=== PATIENT | female | born 1975 | race American Indian/Alaskan Native ===

== ENCOUNTER 2016-09-09 11:54 | Emergency (ER) | payer SELFPAY ==
[2016-09-09] MEDS ORDERED: TYLENOL PO ONE (12:38)
[2016-09-09] MEDS ORDERED: MOTRIN PO ONE (12:38)
--- NOTE | 2016-09-09 12:43 | Emergency Department Report ---
Chief Complaint: Fever Stated Complaint: HEADACHE/CP/MUSCLE PAIN Time Seen by Provider: 09/09/16 12:38 - HPI History of Present Illness: PT states her twins have been sick with URI. PT states yesterday she started having subjective fevers, body aches, cough, chest pain - ROS Review of Systems: + fever + chill + nausea + chest pain denies chance of - Exam Physical Exam: PT febrile in triage but appears non toxic, pt is obese PT tachycardic gcs 15 steady gait MSE screening note: Focused history and physical exam performed. Due to findings the following was ordered: labs, ekg, xr ED Disposition for MSE Condition: Stable
[2016-09-09 12:44] VITALS: BP 204/109
[2016-09-09 12:55] LABS: Basophils % (Auto) 0.6 % (0.0-1.8); Hematocrit 37.8 % (30.3-42.9); Hemoglobin 12.2 gm/dl (10.1-14.3); Mean Corpuscular HGB Conc 32 % (30-34); Mean Corpuscular Hemoglobin 26 pg (28-32); Mean Corpuscular Volume 82 fl (79-97); Platelet Count 334 K/mm3 (140-440); Red Blood Count 4.61 M/mm3 (3.65-5.03); Red Cell Distribution Width 15.5 % (13.2-15.2); White Blood Count 7.7 K/mm3 (4.5-11.0)
[2016-09-09 13:14] LABS: Alanine Aminotransferase 17 units/L (7-56); Albumin 3.7 g/dL (3.9-5); Albumin/Globulin Ratio 1.1 %; Alkaline Phosphatase 89 units/L (35-129); Anion Gap 17 mmol/L; BUN/Creatinine Ratio 8.57; Bilirubin,Total 0.3 mg/dL (0.1-1.2); Blood Urea Nitrogen 6 mg/dL (7-17); Calcium 8.7 mg/dL (8.4-10.2); Carbon Dioxide 24 mmol/L (22-30); Chloride 95.8 mmol/L (98-107); Glucose 229 mg/dL (65-100); Potassium 3.9 mmol/L (3.6-5.0); Sodium 133 mmol/L (137-145); Total Protein 7.2 g/dL (6.3-8.2)
--- NOTE | 2016-09-10 08:45 | XRay Report ---
ROUTINE CHEST, TWO VIEWS: PA and lateral views demonstrate the heart and mediastinal contour to be of normal size and shape. The lungs are clear and fully expanded and the soft tissues and bony structures are normal. IMPRESSION: Normal study.
--- NOTE | 2016-09-13 15:44 | ED Elopement Review ---
ED Pt Elopement review - Results review Lab results: Laboratory Tests 09/09/16 09/09/16 12:46 12:46 WBC 7.7 RBC 4.61 Hgb 12.2 Hct 37.8 MCV 82 MCH 26 L MCHC 32 RDW 15.5 H Plt Count 334 Lymph % (Auto) 12.3 L Holmes % (Auto) 14.9 H Eos % (Auto) 1.0 Baso % (Auto) 0.6 Lymph # 0.9 L Holmes # 1.1 H Eos # 0.1 Baso # 0.0 Seg Neutrophils % 71.2 H Seg Neutrophils # 5.5 Sodium 133 L Potassium 3.9 Chloride 95.8 L Carbon Dioxide 24 Anion Gap 17 BUN 6 L Creatinine 0.7 Estimated GFR > 60 BUN/Creatinine Ratio 8.57 Glucose 229 H Calcium 8.7 Total Bilirubin 0.3 AST 22 ALT 17 Alkaline Phosphatase 89 Troponin T < 0.010 Total Protein 7.2 Albumin 3.7 L Albumin/Globulin Ratio 1.1 - Call Back decision Pt Call Back Decision: No action required
== END 2016-09-09 18:30 | disposition left against medical advice (07) ==
LOC: ED 11:54
DX: R51 Headache (principal); Z53.21 Procedure and treatment not carried out due to patient leaving prior to being seen by health care provider
CPT/HCPCS: 36415; 71020; 80053; 84484; 85025; 93005; 93010

== ENCOUNTER 2017-04-13 07:34 | Emergency (ER) | payer OTHER ==
[2017-04-13 07:56] VITALS: BP 170/91
[2017-04-13] MEDS ORDERED: XYLOCAINE 2% INFILTRATI ONE (09:33)
--- NOTE | 2017-04-13 09:33 | Emergency Department Report ---
Abscess Boil HPI - HPI Chief Complaint: Urogenital-Female Stated Complaint: VAGINAL BOIL Time Seen by Provider: 04/13/17 09:24 Duration: >1 Week Location: Other ([facility]) Severity: Moderate History: Yes Pain, Yes Previous History, No Fever, No Purulent Drainage, No Numbness, No Foreign Body, No Insect Bite HPI: Pt reports abscess to vaginal area x 2 weeks. No further complaints Home Medications: Previous Rx's Medication Instructions Recorded Last Taken Type Ibuprofen [Motrin] 800 mg PO Q8HR PRN #20 tablet 04/13/17 Unknown Rx Sulfamethoxazole/Trimethoprim 1 each PO BID #20 tablet 04/13/17 Unknown Rx [Bactrim DS TAB] Allergies/Adverse Reactions: Allergies Allergy/AdvReac Type Severity Reaction Status Date / Time No Known Allergies Allergy Unverified 09/09/16 12:47 ED Review of Systems ROS: Stated complaint: VAGINAL BOIL Other details as noted in HPI Comment: All other systems reviewed and negative Constitutional: denies: chills, fever Eyes: denies: eye pain, eye discharge, vision change ENT: denies: ear pain, throat pain Respiratory: denies: cough, shortness of breath, wheezing Cardiovascular: denies: chest pain, palpitations Endocrine: no symptoms reported Gastrointestinal: denies: abdominal pain, nausea, diarrhea Genitourinary: denies: urgency, dysuria, discharge Musculoskeletal: denies: back pain, joint swelling, arthralgia Skin: denies: rash, lesions Neurological: denies: headache, weakness, paresthesias Psychiatric: denies: anxiety, depression Hematological/Lymphatic: denies: easy bleeding, easy bruising ED Past Medical Hx - Past Medical History Previous Medical History?: Yes Hx Diabetes: Yes (with only) Hx Asthma: Yes Additional medical history: Had a stillbirth due to RH negative in 2007, Miscarriage 2010 - Surgical History Past Surgical History?: Yes Hx Breast Surgery: Yes (Right breast lumpectomy) - Social History Smoking Status: Never Smoker Substance Use Type: Non Opiate Pain - Medications Home Medications: Home Medications Medication Instructions Recorded Confirmed Last Taken Type Ibuprofen [Motrin] 800 mg PO Q8HR PRN #20 tablet 04/13/17 Unknown Rx Sulfamethoxazole/Trimethoprim 1 each PO BID #20 tablet 04/13/17 Unknown Rx [Bactrim DS TAB] ED Abscess Boil Physical Exam - Exam General: Vital signs noted. No distress. Alert and acting appropriately. Size: 4 cm (R [facility]) Exam: Yes Tenderness, Yes Fluctuance, Yes Normal Neurologic Exam, Yes Normal Circulation, No Surrounding Cellulites/Erythema, No Lymphangitis, No Crepitation , No Heart Murmur I & D Note - I & D Note I & D Note: Area was prepped and draped in usual sterile fashion, 3 cc of 2% lidocaine used for local anesthesia with adequate results. Small incision was made with 11 blade followed by copious drainage. Wound left open. No packing at this time. Pt tolerated procedure well. Chaperoned by Brianna ALCANTARA ED Course Vital Signs 04/13/17 07:50 Temperature 98.2 F Pulse Rate 97 H Respiratory 20 Rate Blood Pressure 170/91 O2 Sat by Pulse 100 Oximetry - Reevaluation(s) Reevaluation #1: 04/13/17 11:04 Pt is in NAD and stable for d/c. Critical care attestation.: If time is entered above; I have spent that time in minutes in the direct care of this critically ill patient, excluding procedure time. ED Medical Decision Making - Medical Decision Making Pt to follow up with OBGYN. Supportive care, antibiotics given. - Differential Diagnosis abscess, cellulitis ED Disposition Clinical Impression: Bartholin's gland abscess Disposition: TO HOME OR SELFCARE Is pt being admited?: No Condition: Good Instructions: Incision and Drainage (ED), [facility] Cyst (ED) Prescriptions: Ibuprofen [Motrin] 800 mg PO Q8HR PRN #20 tablet PRN Reason: Pain Sulfamethoxazole/Trimethoprim [Bactrim DS TAB] 1 each PO BID #20 tablet Referrals: PRIMARY CARE, [Primary Care Provider] - 3-5 Days Time of Disposition: 11:07
== END 2017-04-13 11:49 | disposition home or self-care (01) ==
LOC: ED 07:34
DX: N75.1 Abscess of Bartholin's gland (principal); J45.909 Unspecified asthma, uncomplicated